=== PATIENT | male | born 1985 | race Asian ===

== ENCOUNTER 2022-12-16 15:11 | Outpatient (CLI) | payer OTHER, SELFPAY ==
[2022-12-16 16:06] LABS: Strep Group A RT-PCR NOT DETECTED (Negative)
[2022-12-16 16:17] LABS: Influenza A QL RT-PCR Negative (Negative); Influenza B QL RT-PCR Negative (Negative); SARS-CoV-2 RNA PCR Negative (Negative)
== END 2022-12-16 15:12 | disposition home or self-care (01) ==
LOC: ANHLAB 15:17
PROVIDERS: PCP Internal Medicine; Visit Provider Internal Medicine
DX: J06.9 Acute upper respiratory infection, unspecified (principal); Z20.822 Contact with and (suspected) exposure to COVID-19
CPT/HCPCS: 87502; 87635; 87651

== ENCOUNTER 2024-06-25 14:00 | Outpatient (CLI) | payer OTHER, SELFPAY ==
--- OUTSIDE RECORDS SUMMARY | 2024-06-25 14:07 | XMS_ITS | Clinical Summary ---
Author Organization [facility] Delmer marshall [facility] Address [address] [address] Care Team Providers Care Pomology Teacher Name Role Phone Apryl Beckford MD Primary Care Provider Allergies No known active allergies Medications atorvastatin (LIPITOR) 40 mg tablet Take 40 mg by mouth daily. Active pantoprazole (PROTONIX) 40 mg Tablet, Delayed Release (E.C.) Take 40 mg by mouth daily. Active famotidine (PEPCID) 40 mg tablet Take 40 mg by mouth 2 times daily. Active dicyclomine (BENTYL) 10 mg capsule Take 10 mg by mouth 1 time daily as needed for Other (See Comment) (Acid Reflux). Active Active Problems No known active problems Encounters Date Type Department Care Team Description 06/25/2024 1:30 PM CDT Office Visit [facility] Oncology and Hematology - [place] [address] [facility] [address] [place] [address] Darek Purdy MD Chronic anemia (Primary Dx); Other secondary thrombocytopenia from Last 3 Months Family History Medical History Relation Name Comments No Known Problems Child Heart Disease Father No Known Problems Mother Relation Name Status Comments Child Alive Father Alive Mother Alive Social History Tobacco Use Types Packs/Day Years Used Date Smoking Tobacco: Former Cigarettes 0.3 12 0 02/14/2001 - 02/14/2013 Smokeless Tobacco: Never Sex and Gender Information Value Date Recorded Sex Assigned at Not on file 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 Gender Identity Not on file Sexual Orientation Not on file Last Filed Vital Signs Vital Sign Reading Time Taken Comments Blood Pressure 115/76 06/25/2024 1:13 PM CDT Pulse 71 06/25/2024 1:13 PM CDT Temperature 36.6 C (97.8 F) 06/25/2024 1:13 PM CDT Respiratory Rate 16 06/25/2024 1:13 PM CDT Oxygen Saturation 98% 06/25/2024 1:13 PM CDT Inhaled Oxygen Concentration - - Weight 75.1 kg (165 lb 9.6 oz) 06/25/2024 1:13 P M CDT Height 172.7 cm (5' 8 ) 06/25/2024 1:13 PM CDT Body Mass Index 25.18 06/25/2024 1:13 PM CDT Plan of Treatment Upcoming Encounters Date Type Department Care Team (Late st Contact Info) Description 07/19/2024 4:30 PM CDT Telephone Check Up [facility] Oncology and Hematology - [place] [address] [facility] [address] [place] [address] Darek Purdy MD [address] [facility] [address] [place] [address] Health Maintenance Due Date Last Done Comments DTAP/TDAP/TD VACCINES (1 - Tdap) 08/15/2002 HEPATITIS B VACCINES (1 of 3 - 19+ 3-dose series) 08/15/2002 INFLUENZA VACCINE (#1) 2023 Preventative Visit- Commercial 02/15/2024 HPV VACCINES Aged Out No longer eligi ble based on patient's age to complete this topic Insurance [employer] OPEN CHOICE PPO Care Teams Pomology Teacher Relationship Specialty Start Date End Date Apryl Beckford MD [address] [place] [address] [place] [phone] PCP - General Internal Medicine 06/25/24
--- OUTSIDE RECORDS SUMMARY | 2024-06-25 14:07 | XMS_ITS | Encounter Summary ---
Author Organization [facility] [employer] [facility] Address [address] [place] [address] Care Team Providers Care Denture Technician Name Role Phone Apryl Beckford MD Primary Care Provider Reason for Referral * Radiology Services (Routine) - Closed Specialty Diagnoses / Procedures Referred By Contac t Referred To Contact Diagnoses Other secondary thrombocytopenia Procedures US ABDOMEN COMPLETE Darek Purdy MD [address] [place] [phone] Phone: tel: fax: [place] [phone] Referral ID Status Reason Start Date Expiration Date V isits Requested Visits Authorized [id number] Closed [facility] CTS 06/25/2024 07/26/2025 1 1 Encounter Details Date Type Department Care Team (Late st Contact Info) Description 06/25/2024 1:30 PM CDT Office Visit [facility] Oncology and Hematology [address] [place] [address] Darek Purdy MD [address] [place] [address] Chronic anemia (Primary Dx); Other secondary thrombocytopenia Social History Tobacco Use Types Packs/Day Years Used Date Smoking Tobacco: Former Cigarettes 0.3 12 0 02/14/2001 - 02/14/2013 Smokeless Tobacco: Never Sex and Gender Information Value Date Recorded Sex Assigned at Not on file 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 Gender Identity Not on file Sexual Orientation Not on file documented as of this encounter Last Filed Vital Signs Vital Sign Reading [...] Mass Index 25.18 06/25/2024 1:13 PM CDT documented in this encounter Plan of Treatment Upcoming Encounters Date Type Department Care Team (Late st Contact Info) Description 07/19/2024 4:30 PM CDT Telephone Check Up [facility] Oncology and Hematology - [place] [address] [facility] [address] [place] [address] Darek Purdy MD [address] [facility] [address] [place] [address] Scheduled Orders Name Type Priority Associated Diagnoses Orde r Schedule CBC WITH DIFFERENTIAL Lab Stat Chronic anemia Expected: 06/25/2024, Expires: 06/25/2025 COMPREHENSIVE METABOLIC PANEL Lab Stat Chronic anemia Expected: 06/25/2024, Expires: 06/25/2025 FERRITIN Lab Routine Chronic anemia Expected: 06/25/2024, Expires: 06/25/2025 IRON, TIBC, AND PERCENT SATURATION Lab Routine Chronic anemia Expected: 06/25/2024, Expires: 06/25/2025 VITAMIN B12 AND FOLATE Lab Routine Chronic anemia Expected: 06/25/2024, Expires: 06/25/2025 METHYLMALONIC ACID Lab Routine Chronic anemia Expected: 06/25/2024, Expires: 06/25/2025 TRANSFERRIN RECEPTOR TFR SOLUBLE Lab Routine Chronic anemia Expected: 06/25/2024, Expires: 06/25/2025 US ABDOMEN COMPLETE Imaging Routine Other secondary thrombocytopenia 1 Occurrences starting 06/25/2024 until 06/25/2025 MISCELLANEOUS LAB TEST Lab Routine Other secondary thrombocytopenia Expected: 06/25/2024, Expires: 06/25/2025 documented as of this encounter Visit Diagnoses Diagnosis Chronic anemia- Primary Anemia, unspecified Other secondary thrombocytopenia documented in this encounter Care Teams Denture Technician Relationship Specialty Start Date End Date Apryl Beckford MD [address] [place] [address] [place] [phone] PCP - General Internal Medicine 06/25/24 documented as of this encounter
--- OUTSIDE RECORDS SUMMARY | 2024-06-25 14:07 | XMS_ITS | CONTINUITY OF CARE DOCUMENT ---
Author Name matthew beatrizgeorge Address Unknown Organization [facility] Address [address] [facility] [address] [place] [address] Phone [phone] Care Team Providers Care Donor Technician Name Role Phone Jaycob Zavala MD Unavailable PEDRITO RANKIN MD Unavailable PEDRITO RANKIN MD Unavailable PROBLEMS Condition Status Date Provider Notes Cardiology examination active Jaycob Zavaal MD Hyperlipidemia active Jaycob Zavala MD Chest pain active Jaycob Zavala MD G E R D active Jaycob Zavala MD ENCOUNTERS Date Type Provider Location Encounter Diag nosis - In-person encounter Office Visit Jaycob Zavala MD [place] [facility] G E R D - In-person encounter Office Visit Jaycob Zavala MD [place] [facility] Cardiology examinationHyperlipidemiaChest pain VITAL SIGNS Date Observation Value Provider Body Mass Index (Ratio) 25.09 kg/m2 Abe Zavala MD blood pressure, cuff size regular Kolby Jennings blood pressure, diastolic 72 mm[Hg] Kolby Jennings blood pressure, systolic 112 mm[Hg] Gerson Jennings oxygen saturation, oximetry 98 % Radha Jennings pulse rate 65 /min Radha Jennings weight E&M 165 [lb_av] Radha Dick respiratory rate E&M 12 /min Radha Jennings height E&M 68 [in_i] Radha Dick weight E&M 163 [lb_av] Nicky roberts Body Mass Index (Ratio) 25.09 kg/m2 Abe Zavala MD blood pressure, cuff size regular Ke mario Burleson blood pressure, diastolic 70 mm[Hg] Kirk Burleson blood pressure, systolic 102 mm[Hg] Jl Burleson oxygen saturation, oximetry 98 % Krista Burleson respiratory rate E&M 12 /min Krista beckham pulse rate 67 /min Krista meraer weight E&M 165 [lb_av] Krista meraer height E&M 68 [in_i] Krista mera HISTORY OF MEDICATION USE Medication Status Instructions Dates Provider Indications Com ments sucralfate 1 gram tablet active Take one tab PO TID Radha Jennings pantoprazole 40 mg active Take one tab PO QD Radha Jennings atorvastatin 40 mg tablet active TAKE 1 TABLET BY MOUTH EVERY NIGHT Krista Burleson omeprazole 20 mg capsule,delayed release(DR/EC) completed take 1 pill a day - Radha Jennings SOCIAL HISTORY Date Observation Value Provider personal history of marijuana use no Jaycob Zavala MD drug use no Jaycob Zavala MD alcohol use, average drinks per day 3 /d Jaycob Zavala MD alcohol use yes Jaycob Zavala MD smoking status Former smoker Jaycob Zavala MD personal history of marijuana use no Jaycob Zavala MD drug use no Jaycob Zavala MD alcohol use, average drinks per day 3 /d Jaycob Zavala MD alcohol use yes Jaycob Zavala MD smoking status Former smoker Jaycob Zavala MD INSURANCE PROVIDERS Payer name Policy type / Coverage type Wojciech red democrat ID [employer] Commercial insurance company [id number] ADVANCE DIRECTIVES Name Date DISCUSSED - NO DECISION MADE TREATMENT PLAN Date Name Performer Cardiology:Follows GI Jaycob burroughs MD Cardiology: H is updated medication list for this problem includes: Atorvastatin 40 Mg Tablet (Atorvastatin) ..... Take 1 tablet by mouth every night This visit has been a part of the consistent, comprehensive, and ongoing management of the chronic medical condition(s) listed above for the patient. Jaycob Zavala MD Cardiology:Routine s tress test negative for ischemia S tates that his pain has reduced 90% after starting sucralfate Jaycob Zavala MD Cardiology: H is updated medication list for this problem includes: Atorvastatin 40 Mg Tablet (Atorvastatin) ..... Take 1 tablet by mouth every night Jaycob Zavala MD Cardiology:normal exam Jaycob boswell MD Cardiology:although atypical, he will need a routine stress test and echo due to multiple cardiac risk factors Jaycob Zavala MD Date Name Complete Echo Stress Routine HISTORY OF PROCEDURES Procedure Date Procedure Name Provider Procedure Notes S tatus Complex e/m visit add on Jaycob Zavala MD completed EKG Jaycob Zavala MD completed EKG Jaycob Zavala MD completed
--- OUTSIDE RECORDS SUMMARY | 2024-06-25 14:07 | XMS_ITS | Data Portability ---
Author Organization [place] - [facility], Main Office Address [address] [place] [address] Assessment Encounter Date Assessment Date Assessment LastModified by Organization Details LastModified Time 08/02/2022 08/02/2022 07/26/2022: TSH/FT4/CBC/C MP: WNL LDL 114 A1C 5.6 VIT D 53.5 Not available 08/02/2022 11:32:01 01/31/2023 01/31/2023 07/26/2022: TSH/FT4/CBC/C MP: WNL LDL 114 A1C 5.6 VIT D 53.5 01/25/2023: Stable 07/26/2022: TSH/FT4/CBC/C MP: WNL LDL 114 A1C 5.6 VIT D 53.5 01/25/2023: Stable Not available 01/31/2023 11:04:06 08/03/2023 08/03/2023 07/26/2022: TSH/FT4/CBC/C MP: WNL LDL 114 A1C 5.6 VIT D 53.5 01/25/2023: Stable 07/26/2022: TSH/FT4/CBC/C MP: WNL LDL 114 A1C 5.6 VIT D 53.5 01/25/2023: Stable 08/01/2023: PLT 143L A1C 5.7 Not available 08/03/2023 11:09:05 11/28/2023 11/28/2023 07/26/2022: TSH/FT4/CBC/C MP: WNL LDL 114 A1C 5.6 VIT D 53.5 01/25/2023: Stable 07/26/2022: TSH/FT4/CBC/C MP: WNL LDL 114 A1C 5.6 VIT D 53.5 01/25/2023: Stable 08/01/2023: PLT 143L A1C 5.7 11/23/2023: TSH 4.590H, FT4 1.33 PLT 142 A1C 5.5 Not available 11/28/2023 10:34:29 04/02/2024 04/02/2024 07/26/2022: TSH/FT4/CBC/C MP: WNL LDL 114 A1C 5.6 VIT D 53.5 01/25/2023: Stable 07/26/2022: TSH/FT4/CBC/C MP: WNL LDL 114 A1C 5.6 VIT D 53.5 01/25/2023: Stable 08/01/2023: PLT 143L A1C 5.7 11/23/2023: TSH 4.590H, FT4 1.33 PLT 142 A1C 5.5 03/28/2024: TSH 5.13 PLT 148 Not available 04/02/2024 10:21:13 Plan of Treatment Reminders Order Date Submit Date Provider Last Modified By Organization Details Last Modified Time Details Appointments Follow Up 15 2024 10:45A M Apryl hughes MD Not available Not available Not available Lab lipid panel, serum 2024 025 [facility]SA [facility], [address] [facility], [facility], [place], [address], 04/02/2024 10:45:07 CBC w/ auto diff 2024 025 [facility], [address] [facility], [facility], [place], [address], 04/02/2024 10:44:52 CMP, serum or plasma 2024 025 [facility]SA [facility], [address] [facility], [address], [place], [address], 04/02/2024 10:44:51 TSH + free T4, serum 2024 025 [facility]SA [facility], [address] [facility], [address], [place], [address], 04/02/2024 10:44:51 HbA1c (hemoglob in A1c), blood 2024 025 [facility]ISSA [facility], [address] [facility], [address], [place], [address], 04/02/2024 10:44:52 HbA1c (hemoglob in A1c), blood 2023 024 [email or web address] [facility], [facility], [facility], [place], [address], 05/28/2024 16:38:52 lipid panel, serum 2023 024 [email or web address] [facility], [address] [place] [address], [facility], [place], [address], 05/28/2024 16:38:51 CBC w/ auto diff 2023 024 [email or web address] [facility], [address] [place] [address], [facility], [place], [address], 05/28/2024 16:38:52 CMP, serum or plasma 2023 024 [email or web address] [facility], [address] [place] [address], [facility], [place], [address], 05/28/2024 16:38:52 TSH + free T4, serum 2023 024 [email or web address] [facility], [address] [place] [address], [facility], [place], [address], 05/28/2024 16:38:52 HbA1c (hemoglob in A1c), blood 2023 024 [facility]SA [facility], [facility], [facility], [place], [address], 11/24/2023 07:37:06 CBC w/ auto diff 2023 024 [facility], [facility], [facility], [place], [address], 08/04/2023 07:38:54 lipid panel, serum 2023 024 [facility], [address] [facility], [facility], [place], [address], 11/24/2023 07:37:06 CBC w/ auto diff 2023 024 [facility], [address] [place] [address], [facility], [place], [address], 11/24/2023 07:37:06 CMP, serum or plasma 2023 024 [facility]ELISSA [facility], [address] [place] [address], [facility], [place], [address], 11/24/2023 07:37:06 TSH + free T4, serum 2023 024 [email or web address] [facility], [address] [place] [address], [place], [address], 01/30/2024 09:13:29 HbA1c (hemoglob in A1c), blood 2022 023 [email or web address] [facility], [address] [place] [address], [facility], [place], [address], 01/30/2024 09:13:28 lipid panel, serum 2022 023 [facility], [address] [place] [address] 2, [place], [address], 01/30/2024 09:13:28 CBC w/ auto diff 2022 023 [email or web address] [facility], [address] [place] [address], [facility], [place], [address], 01/30/2024 09:13:28 CMP, serum or plasma 2022 023 [email or web address] [facility], [address] [place] [address], [facility], [place], [address], 01/30/2024 09:13:28 TSH + free T4, serum 2022 023 [email or web address] [facility], [address] [place] [address], [place], [address], 01/30/2024 09:13:28 HbA1c (hemoglob in A1c), blood 2022 023 [email or web address] [facility], [address] [place] [address], [place], [address], 03/11/2023 10:02:42 lipid panel, serum 2022 023 [email or web address] [facility], [address] [place] [address], [place], [address], 03/11/2023 10:02:42 CBC w/ auto diff 2022 023 [email or web address] [facility], [address] [place] [address], [place], [address], 03/11/2023 10:02:42 CMP, serum or plasma 2022 023 [email or web address] [facility], [address] [place] [address], [place], [address], 03/11/2023 10:02:42 TSH + free T4, serum 2022 023 [email or web address] [facility], [address] [place] [address], [place], [address], 03/11/2023 10:02:42 Referral gastroent erologist referral - Please call patient to schedule an appointme nt. Thank you. 2024 025 HAILEY Escobar MD, [address], [address], [place], [address], 04/02/2024 14:05:24 physical therapist referral - Please call patient to schedule an appointme nt. Thank you. 2024 025 [facility] [place] [facility], [address], [place], [address], 05/11/2024 17:31:25 hematolog ist referral - Please call patient to schedule an appointme nt. Thank you. 2024 025 [email or web address] Darek Purdy MD, [address], [place], [address], 04/02/2024 13:30:48 gastroent erologist referral 2023 024 MELISSA Escobar MD, [address], [facility] [address], [address], 12/05/2023 10:19:25 hematolog ist referral 2023 024 [email or web address] Darek Purdy MD, [address], [place], [address], 06/25/2024 08:55:12 cardiolog ist referral 2023 024 [place], [address] , [place] [address], [address], 08/04/2023 15:55:15 Procedures None recorded. Surgeries None recorded. Imaging US, thyroid - Please call patient to schedule. 2024 025 [facility] ([facility]), [address] [place], [address], 05/03/2024 15:44:09 CT, chest, w/o contrast - Auth was denied stating pt needs to have a chest xray first. Sent pt case to Dr. Nayla hughes 2023 024 [email or web address] Not available 08/24/2023 14:00:06 Medication Orders Lipitor 40 mg tablet 2022 023 [facility], [address] [place], [address], 08/02/2022 11:49:37 Patient TargetsNo targets recorded. Patient InstructionsNo instructions recorded. 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 Thank you. Referring Physician: Apryl [facility], Encounter Date: 04/02/2024 Line Leader Referral for Dysphagia Please call patient to schedule an appointment. Thank you. Referring Physician: Apryl [facility], Encounter Date: 04/02/2024 Physical Therapist Referral for Low back pain Please call patient to schedule an appointment. Thank you. Referring Physician: Apryl [facility], Encounter Date: 04/02/2024 Results Created Date Observation Date Name Description Value Unit Range Abnormal Flag Note LastModifiedBy Organization Detail LastModifiedTime 10/06/19 23 tibia /fibu la 2 vws, left [facility] [address] [address] [phone] Patien t Name: DIPTI RUBIO RA Access ion #: [id number] Sex: M : 1985 8 4 Dictat ed By: Zee dixon Attend ing Physic issa: ALFIE TAMAYO Orderi Physic issa: ALFIE TAMAYO Exam Date: 2022 13:09 PM Exam Name: XR TIBIA/ FIBULA LT 2V Admitt ing Diagno sis(es ): CLINIC AL INFORM ATION: Left lower leg injury . TECHNI QUE: AP and latera l radiog raphs of the left lower leg were obtain ed. COMPAR VICTORINA: No prior studie s. FINDIN GS: No acute fractu re or disloc ation. No signif icant arthro junito. No focal soft tissue swelli ng visual ized on radiog raphs. IMPRES ERLIN: No eviden ce of acute bony abnorm ality. Electr onical ly Signed by: Zee dixon at 2022 13:33: 15 PM Page 1 [email or web address] [facility] (Imaging) [address] [place], [address], 10/05/2022 14:41:38 10/06/19 23 10/05/2022 XR, lower extre mity No observ ation record ed. [email or web address] [facility] [address] [place], [address], 02/03/2023 09:04:44 08/10/19 24 XR, chest , 2 view [facility] [address] [place] [address] [phone] Patien t Name: DIPTI RUBIO RA Access ion #: [id number] Sex: M : 1985 8 3 Dictat ed By: Cora Hawk Attend ing Physic issa: ALFIE TAMAYO Orderi ng Physic issa: ALFIE TAMAYO Exam Date: 2023 10:40 AM Exam Name: XR CHEST 2V Admitt ing Diagno sis(es ): EXAM: XR CHEST 2V CLINIC AL HISTOR Y: chest pain COMPAR VICTORINA: None TECHNI QUE: Fronta l and latera l view of the chest was obtain ed FINDIN GS: Lines and Tubes: None Lungs: No focal consol idatio n. Pleura : No effusi on. No pneumo thorax . Cardio medias tinal contou rs: Unrema rkable Bones: No acute osseou s abnorm ality. IMPRES ERLIN: No acute cardio pulmon demarcus diseas e. Electr onical ly Signed by: Cora Hawk at 2023 11:09: 16 AM Page 1 [facility] (Imaging) [address] [place], [address], 08/10/2023 12:10:57 08/10/19 24 08/10/2023 imagi ng/di agnos tic resul t No observ ation record ed. [facility] [address] [place], [address], 08/10/2023 12:20:40 09/16/19 24 09/16/2023 imagi ng/di agnos tic resul t No observ ation record ed. [facility] [address] [facility], [place], [address], 09/16/2023 19:34:51 09/22/19 24 09/22/2023 imagi ng/di agnos tic resul t No observ ation record ed. [facility] [address] [facility] [address], [place], [address], 09/22/2023 17:41:30 05/04/19 25 05/03/2024 US, head + neck, soft tissu e [facility] [address] [place] [address] [phone] Patien t Name: DIPTI RUBIO Access ion #: [id number] Sex: M : 1985 8 5 Dictat ed By: Cora Hawk Attend ing Physic issa: ALFIE TAMAYO Physic issa: ALFIE TAMAYO Exam Date: 2024 13:18 PM Exam Name: US NECK HEAD SOFT TISSUE Admitt ing Diagno sis(es ): ULTRAS OUND SOFT TISSUE HEAD AND NECK CLINIC AL INDICA TION: Hypoth yroidi sm TECHNI QUE: Multip le real time sonogr aphic images of the thyroi d were obtain ed. COMPAR VICTORINA: Prior exam dated None FINDIN GS: The right thyroi d gland measur es 4.6 x 1.6 x 1.2 cm. The left thyroi d gland measur es approx imatel y 4.1 x 1.1 x 1.4 cm. The isthmu s measur es 0.4 cm. IMPRES ERLIN: 1. Normal Thyroi d. [employer] TI-RAD S Catego maddie and Recomm endati ons (2017) : TR1: 0 points , Benign , No FNA TR2: 2 points , Not suspic ious, No FNA TR3: 3 points , Mildly suspic ious, FNA if > or = 2.5 cm, Follow if > or = 1.5 cm TR4: 4-6 points , Modera tely Suspic ious, FNA if > or = 1.5 cm, Follow if > or = 1.0 cm Page 1 [facility] [address] [place] [address] Patien t Name: DIPTI RUBIO Access ion #: [id number] Sex: M : 1985 8 5 Dictat ed By: Cora Hawk Attend ing Physic issa: ASTRID HAMILTON Physic issa: ALFIE TAMAYO Exam Date: 2024 13:18 PM Exam Name: US NECK HEAD SOFT TISSUE Admitt ing Diagno sis(es ): TR5: 7+ points , Highly Suspic ious, FNA if > or = 1.0 cm, Follow if > or = 0.5 cm Follow -up ultras ound guidel cori: TR5: yearly for 5 years, if no growth or change in TI-RAD S level TR4: at 1, 2, 3 and 5 years, if no growth or change in TI-RAD S level TR3: at 1, 3 and 5 years, if no growth or change in TI-RAD S level If increa sed but below thresh old for FNA, repeat in one year. Source : ACR Thyroi d Shayla g, Report ing and Data System (TI-RA DS): White Paper of the ACR TI-RAD S Commit alex. Vladimir et al., J Am Mike Radiol 2017;1 4:587- 595. Electr onical ly Signed by: Cora Hawk at 2024 14:39: 35 PM Page 2 [facility] ([facility]) [address] [facility], [place], [address], 05/03/2024 15:41:47 05/04/19 25 05/03/2024 US, thyro id No observ ation record ed. [facility] [address] [facility], [place], [address], 05/03/2024 15:44:09 Result Notes None recorded. Problems Name Problem SNOMED Code Status Onset Date Resolution Date Notes Provider Name and Address Organization Details Recorded Time Upper respiratory infection 64155794 Active 2022 Miya lozano, [facility] 3 17:35:31 COVID-19 222047731 Active 2022 Miya lozano, [facility] 3 12:46:58 Allergic rhinitis 21343369 Active 2022 Apryl hughes MD [address], [address], [place], [address], [facility] 3 11:26:26 Thoracic back pain 253371284 Active 2022 Apryl hughes MD [address], [place], [address], [facility] 3 11:26:31 Hyperlipidemia 73073795 Active 2022 Apryl hughes MD [address], [place], [address], [facility] 3 11:26:39 Hyperglycemia 98504764 Active 2022 Apryl hughes MD [address], [place], [address], [facility] 3 11:26:44 Injury of lower leg 609376074 Active 2022 Miya Bell null, [facility] 3 12:54:32 Gastroesophage al reflux disease without esophagitis 864765430 Active 2023 Ivet Mak MA null, [facility] 4 15:06:54 Dysphagia 52131656 Active 2023 Ivet Mak MA null, [facility] 4 15:32:57 Atypical chest pain 786284630 Active 2023 Apryl hughes MD [address], [address], [place], [address], [facility] 4 11:25:48 Thrombocytopen ic disorder 462594202 Active 2023 Apryl hughes MD [address], [address], [place], [address], [facility] 4 11:28:16 Chest pain 33108476 Active 2023 Ivet Mak MA null, [facility] 4 14:10:29 Painless rectal bleeding 215374214 Active 2023 Apryl hughes MD [address], [address], [place], [address], [facility] 4 10:37:52 Hypothyroidism 93652127 Active 2024 Apryl hughes MD [address], [address], [place], [address], [facility] 5 18:04:36 Low back pain 277609005 Active 2024 Apryl hughes MD [address], [address], [place], [address], [facility] 10:42:08 Problem Notes None recorded. Procedures Surgical History Date Name Laterality Status Provider Name and Address Organization Details Recorded Time Stanley Teeth completed Not Available MelissaHealdanilo h 04/15/2022 01:25:12 Imaging Results Imaging Date Name Status LastModified by Organiz ation Details LastModified Time 10/05/2022 tibia/fibula 2 vws, left completed [facility] [place] [address] (Imaging) [address] [place], [address], 10/05/2022 14:41:38 10/05/2022 XR, lower extremity completed [address] [place], [address], 02/03/2023 09:04:44 08/10/2023 XR, chest, 2 view active [facility] (Imaging) [address] [place], [address], 08/10/2023 12:10:57 08/10/2023 imaging/diagno stic result active [facility] [address] [place], [address], 08/10/2023 12:20:40 09/16/2023 imaging/diagno stic result active [facility] [address] , [place], [address], 09/16/2023 19:34:51 09/22/2023 imaging/diagno stic result active [facility] [address] [facility] [address] [facility] [place], [place], [address], 09/22/2023 17:41:30 05/03/2024 US, head + neck, soft tissue active [facility] (Imaging) [address] [place], [address], 05/03/2024 15:41:47 05/03/2024 US, thyroid active [place] [address] [facility] [place], [address], 05/03/2024 15:44:09 Procedure Notes None recorded. Medical Equipment None Reported. Allergies No known drug allergies Medications Name Sig Start Date Stop Date Status Note LastModified by Organization Details LastModified Time atorvastati n 40 mg tablet Take 1 tablet by mouth once daily 2023 active Not Available Not Available Not Avai lable meloxicam 15 mg tablet Take 1 tablet every day by oral route as needed for 30 days. active Not Available Not Available No t Available prednisone 20 mg tablet TAKE 3 TABLETS BY MOUTH ONCE DAILY FOR 5 DAYS 11/23 completed Not Available Not Available Not Available Zithromax Z-Javon 250 mg tablet TAKE 2 TABLETS (500 MG) BY ORAL ROUTE ONCE DAILY FOR 1 DAY THEN 1 TABLET (250 MG) BY ORAL ROUTE ONCE DAILY FOR 4 DAYS 01/31 completed Not Available Not Available Not Available pantoprazol e 20 mg tablet,francisco yed release Take 1 tablet every day by oral route. active Not Available Not Available No t Available benzonatate 100 mg capsule TAKE 1 CAPSULE BY MOUTH EVERY 8 HOURS NEEDED 11/23 completed Not Available Not Available Not Available omeprazole 20 mg capsule,del ayed release TAKE 1 CAPSULE BY MOUTH ONCE DAILY NEEDED 11/27 completed Not Available Not Available Not Available amoxicillin 875 mg-potassiu m clavulanate 125 mg tablet TAKE 1 TABLET BY MOUTH EVERY 12 HOURS 08/02 completed Not Available Not Available Not Available Vitamin D 2021 active Not Available Not Available Not Avai lable Nasacort Allergy 55 mcg nasal spray aerosol Desmet 2 sprays every day by intranasa l route. 2021 active Not Available Not Available Not Avai lable Paxlovid 300 mg (150 mg x 2)-100 mg tablets in a dose pack TAKE 3 TABLETS BY MOUTH TWICE A DAY FOR 5 DAYS DIRECTED 08/02 completed Not Available Not Available Not Available Vitals Date Recorded Body height Body mass index (BMI) Body weight Body temperature Heart rate Systolic blood pressure Diastolic blood pressure Provider Name and Address Organization Details Last Updated DateTime 3 172.72 cm 26.5 kg/m2 52468.0 7 g 97.4 [degF] 72 /min 106 mm[Hg] 62 mm[Hg] [employer] [place] [employer] [facility] [employer] [facility] 3 11:23:13 Date Recorded Body height Body mass index (BMI) Body weight Body temperature Heart rate Systolic blood pressure Diastolic blood pressure Provider Name and Address Organization Details Last Updated DateTime 3 172.72 cm 25.5 kg/m2 63005.5 2 g 97.5 [degF] 72 /min 100 mm[Hg] 62 mm[Hg] [employer] [facility] [employer] [facility] 3 11:09:24 Date Recorded Body height Body mass index (BMI) Body weight Body temperature Heart rate Systolic blood pressure Diastolic blood pressure Provider Name and Address Organization Details Last Updated DateTime 4 172.72 cm 24.6 kg/m2 90543.9 6 g 97.7 [degF] 72 /min 114 mm[Hg] 70 mm[Hg] [employer] [facility] [employer] [facility] 4 11:03:20 Date Recorded Body height Body mass index (BMI) Body weight Body temperature Heart rate Respiratory rate Oxygen saturation Oxygen saturation in Arterial blood by Pulse oximetry Pain severity - 0-10 verbal numeric rating [Score] - Reported Systolic blood pressure Diastolic blood pressure Provider Name and Address Organization Details Last Updated DateTime 4 172.72 cm 24.9 kg/m2 33996.1 5 g 97.5 [degF] 64 /min 16 /min 99 % 99 % 0 108 mm[Hg] 62 mm[Hg] Alistair Peterson LPN [facility] [employer] [facility] 4 10:29:26 Date Recorded Body height Body mass index (BMI) Body weight Body temperature Heart rate Systolic blood pressure Diastolic blood pressure Provider Name and Address Organization Details Last Updated DateTime 5 172.72 cm 25.4 kg/m2 76629.9 3 g 97.6 [degF] 72 /min 114 mm[Hg] 72 mm[Hg] [employer] Amanda [facility] [employer] [facility] 5 10:25:45 Social History Question Answer Notes LastModified by Organization Details LastModified Time Tobacco Smoking Status Former Smoker was 1/ ppd --quit 2011 Not Available [employer] 04/15/2022 01:24:55 Do You Have An Advance Directive? No [email or web address] [id number] Information not available 04/15/2022 What Is Your Level Of Caffeine Consumption? Moderate MIGRATION.030 [id number] Information not available 04/15/2022 In The 14 Days Before Symptom Onset, Have You Had Close Contact With A Laboratory-confi rmed COVID-19 While That Case Was Ill? No MIGRATION.030 [id number] Information not available 04/15/2022 In The 14 Days Before Symptom Onset, Have You Had Close Contact With A Person Who Is Under Investigation For COVID-19 While That Person Was Ill? No MIGRATION.030 [id number] Information not available 04/15/2022 What Type Of Diet Are You Following? REGULAR MIGRATION.030 [id number] Information not available 04/15/2022 What Is The Highest Grade Or Level Of School You Have Completed Or The Highest Degree You Have Received? [id number] MIGRATION.030 [id number] Information not available 04/15/2022 Have There Been Any Changes To Your Family Or Social Situation? No MIGRATION.030 [id number] Information not available 04/15/2022 What Is The Fluoride Status Of Your Home? Unknown MIGRATION.030 [id number] Information not available 04/15/2022 When Did You Quit Smoking? 11-15yearssincelast cigarette Information not available 01/31/2023 Are There Any Guns Present In Your Home? No MIGRATION.030 [id number] Information not available 04/15/2022 Do You Use Insect Repellent Routinely? Yes MIGRATION.030 [id number] Information not available 04/15/2022 Where Do You Live? [place] MIGRATION.030 [id number] Information not available 04/15/2022 Do You Have A Medical Power Of Mesh Man? No MIGRATION.030 [id number] Information not available 04/15/2022 What Was The Date Of Your Most Recent Tobacco Screening? 04/02/2024 Information not available 04/02/2024 Do You Have Any Pets? No MIGRATION.030 [id number] Information not available 04/15/2022 What Is Your Relationship Status? MIGRATION.030 [id number] Information not available 04/15/2022 Do You Have Smoke And Carbon Monoxide Detectors In Your Home? Yes MIGRATION.0301 [id number] Information not available 04/15/2022 Are You Passively Exposed To Smoke? No MIGRATION.0301 [id number] Information not available 04/15/2022 Are There Any Smokers In Your House? No MIGRATION.0301 [id number] Information not available 04/15/2022 Do You Use Sunscreen Routinely? No MIGRATION.0301 [id number] Information not available 04/15/2022 Have You Recently Traveled Abroad? No MIGRATION.0301 [id number] Information not available 04/15/2022 Do You Have Any Dietary Restrictions? No [id number] Information not available 04/15/2022 Sex: Male Functional Status Question Answer Note LastModified by [employer] Details LastModified Time Do you use any illicit or recreational drugs? No [id number] Information not available 04/15/2022 Do you or have you ever used any other forms of tobacco or nicotine? No [id number] Information not available 04/15/2022 What is your level of alcohol consumption? 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 Occasional [id number] Information not available 04/15/2022 Mental Status Question Answer Note LastModified by [email or web address] Details LastModified Time Do you feel stressed (tense, restless, nervous, or anxious, or unable to sleep at night)? [id number] Information not available 04/15/2022 Family History Relationship Description Onset Age of this Age Resolved Age Notes LastModified by Organization Details LastModified Time Father Heart disease [id number] Not available 04/15/2022 01:25:16 Father Cardiac pacemaker in situ [id number] Not available 04/15/2022 01:25:16 Father Heart valve replacement [id number] Not available 04/15/2022 01:25:16 Mother Disorder of thyroid gland [id number] Not available 04/15/2022 01:25:16 Paternal Uncle Malignant tumor of stomach [email or web address] Not available 2022 11:07:45 Medical History Condition Response NERVE DISEASE N BLINDNESS N RHEUMATIC FEVER N KIDNEY STONES N BLADDER PROBLEMS N MRSA N OTHER # 1 N POLIO N LUNG DISEASE/DISORDER N HISTORY OF DRUG ABUSE N COPD N RADIATION / CHEMOTHERAPY N Other # 2 N BLOOD DISEASES N EAR OR HEARING PROBLEMS N MUMPS N SHINGLES N BOWEL PROBLEMS N DEPRESSION (INCLUDING POST ) N STROKE/TIA N ULCERS N BENIGN PROSTATIC HYPERPLASIA N MEASLES N HYPOTENSION N MYOCARDIAL INFARCTION N OBESITY N GERD/NAUSEA N ANEURYSM N URINARY/BLADDER/KIDNEY PROBLEMS N CORONARY ARTERY DISEASE (CAD) N ADDICTION CONCERNS N ENDOMETRIOSIS N Impotence N USE OF BLOOD THINNERS N SKIN PROBLEMS N GASTROINTESTINAL DISORDER N PERIPHERAL VASCULAR DISEASE N MUSCLE,JOINT OR BONE PROBLEMS N GASTROINTESTINAL BLEEDING N BLOOD CLOTS N ASTHMA N CATARACTS N ERECTILE DYSFUNCTION N VARICOSITIES N GI PROBLEMS N Low Testosterone N INFERTILITY N AIDS/HIV N CHEMOTHERAPY / RADIATION N LIVER DISEASE N MALE HYPOGONADISM N HYPERTENSION N Deficiency N TOURETTE'S N ANXIETY DISORDER N BLOOD TRANSFUSION N ANEMIA/BLOOD DISORDER N CHRONIC EAR INFECTIONS N BRONCHITIS N TUBERCULOSIS N GLAUCOMA N FOOT PROBLEM N DIVERTICULITIS N CHICKENPOX N SLEEP APNEA N INFECTIOUS DISEASE N HEART ARRHYTHMIA N PROSTATE N INSOMNIA N HIGH CHOLESTEROL / HYPERLIPIDEMIA N HYPERTHYROIDISM N EYE PROBLEMS N EDEMA N CHRONIC PAIN SYNDROME N HYPOTHYROIDISM N CAROTID BLOCKAGE N CONSTIPATION N BACK / NECK PROBLEMS N ATHEROSCLEROSIS N BREAST PROBLEMS N DIALYSIS N ECZEMA N OSTEOPOROSIS N ARTHRITIS N APPENDICITIS N DIABETES, TYPE N BAD TEETH N ENT N HEARTBURN / REFLUX N AUTISM SPECTRUM DISORDER (ASD) N HEPATITIS / LIVER DISEASE N GOUT N SLEEP DISORDER N ALZHEIMER'S DISEASE N Brain Problems N HERPES N DEMENTIA N HEADACHES/MIGRAINES N SEIZURES/EPILEPSY N VASCULAR DISEASE N PACEMAKER N Blood Disorder N DIZZINESS N HEART DISEASE/HEART PROBLEMS N KIDNEY DISEASE N MULTIPLE SCLEROSIS N CARDIAC ARRHYTHMIA N CANCER: SPECIFY N ATRIAL FIBRILLATION N Gall Stones N PULMONARY EMBOLISM N AUTOIMMUNE DISEASE N Immunizations Vaccine Type Date Status Note Provider Nam e and Address Organization Details Recorded Time Influenza, split virus, quadrivalent, PF 11/23/2021 completed Not Available [facility] 3 01:30:51 Past Encounters Encounter ID Performer Location Encounter Start Date Encounter Closed Date Diagnosis/Indication Diagnosis SNOMED-CT Code Diagnosis ICD10 Code Diagnosis Note [id number] Apryl christina MD [facility] [place] [address] [facility] [place] [address] 11/23/2021 00:00:00 11/23/2021 16:57:26 [id number] Apryl christina MD [facility] Internal [facility] [address] [place] [address] 04/05/2022 00:00:00 04/05/2022 10:01:11 [id number] Apryl christina MD [facility] Internal [address] , [place] [address] 08/02/2022 11:15:51 08/02/2022 11:52:48 Screening - NAD 378681399 Z13.9 Get yearly flu shotShould do Tdap if not doneGet COVID 19 vaccine and its boosters RTC in 3 monthsDo labsER if worse, he did verbalize his understand ing of the above Allergic rhinitis 760603 04 J30.9 On nasocortDo es well Thoracic back pain 04127 8004 M54.6 Xray C-spine: 11/23/2021 : DDD, see casePT referral given Hyperlipidemia 25813978 E78.5 Agreeable to do lipitor, all side effects explainedG et labs Hyperglycemia 16492859 R 73.9 Get A1C [id number] Apryl christina MD [facility] Internal [address] , [place] [address] 01/31/2023 10:59:50 01/31/2023 11:55:06 Screening - NAD 290361725 Z13.9 Get yearly flu shotShould do Tdap if not doneGet COVID 19 vaccine and its boosters RTC in 3 monthsDo labsER if worse, he did verbalize his understand ing of the above Allergic rhinitis 010270 04 J30.9 On nasocortDo es well Thoracic back pain 35870 8004 M54.6 Xray C-spine: 11/23/2021 : DDD, see casePT referral given Hyperlipidemia 62935490 E78.5 Agreeable to do lipitor, all side effects explainedG et labs Hyperglycemia 22496801 R 73.9 Get A1C [id number] Apryl christina MD [facility] Internal [facility] [place] [address] [place] [address] 08/03/2023 10:57:36 08/03/2023 11:30:21 Screening - NAD 577500892 Z13.9 Get yearly flu shotShould do Tdap if not doneGet COVID 19 vaccine and its boosters RTC in 3 monthsDo labsER if worse, he did verbalize his understand ing of the above Allergic rhinitis 642666 04 J30.9 On nasocortDo es well Thoracic back pain 86323 8004 M54.6 Xray C-spine: 11/23/2021 : DDD, see casePT referral given Hyperlipidemia 04536186 E78.5 On atorvastat in 40mg dailyGet labs Hyperglycemia 51764609 R 73.9 Get N3FMkmxg to not take any meds, diet and exercise, states that was eating a lot of ice cream Dysphagia 57934130 R13.[address] Escobar 05/17/2023 On omeprazole S/p EGD 05/31/2023 Keep apt with GI Atypical chest pain 1025 02413 R07.89 Feels that he has a feeling of something stuck in the mid chest area, no obvious chest pain, no palpitatio ns, no presycnope or syncope, describes as a discomfort not even painExtens jess family history of CADWill get CT chest and also get cardiology referralWi ll see Dr Zavala 08/04/2023 at 2 pm Thrombocyt openic disorder 930536975 D69.6 Repeat the CBCMay need to see hematology [id number] Apryl christina MD [facility] [place] Internal Med [facility] [place] [address] [facility] [place] [address] 11/28/2023 10:19:13 11/28/2023 11:04:57 Screening - NAD 664223718 Z13.9 C-scope : Dr Escobar, internal hhoids, next in 10 years Get yearly flu shot, declined 11/28/2023 Should do Tdap if not doneGet COVID 19 vaccine and its boosters RTC in 3 monthsDo labsER if worse, he did verbalize his understand ing of the above Allergic rhinitis 395145 04 J30.9 On nasocortCa n do OTC zyrtecDoes well Thoracic back pain 65053 8004 M54.6 Xray C-spine: 11/23/2021 : DDD, see caseDoes well now 11/28/2023 Hyperlipidemia 20085409 E78.5 On atorvastat in 40mg dailyGet labs Hyperglycemia 73611712 R 73.9 Get G4LBkyek to not take any meds, diet and exercise, states that was eating a lot of ice cream Dysphagia 56196190 R13.[address] Escobar 05/17/2023 On omeprazole S/p EGD 05/31/2023 , distal esophageal strictureK eep apt with GI Atypical chest pain 1025 82328 R07.89 Feels that he has a feeling of something stuck in the mid chest area, no obvious chest pain, no palpitatio ns, no presycnope or syncope, describes as a discomfort not even painExtens jess family history of CAD Dr Zavala 08/04/2023 at [address] Ronal 09/22/2023 , f/u PRN XR chest: 08/10/2023 : NegECHO 09/22/2023 : SLHVStress test 09/16/2023 : Neg Thrombocyt openic disorder 687649813 D69.6 See hematology Painless r ectal bleeding 397790379 K62.5 C-scope : Dr Escobar, internal hhoids, next in 10 years [id number] Apryl christina MD [facility] [address] [facility] [place] [address] 04/02/2024 10:18:11 04/02/2024 10:47:00 Screening - NAD 682689463 Z13.9 C-scope : Dr Escobar, internal hhoids, next in 10 years Get yearly flu shot, declined 11/28/2023 Should do Tdap if not doneGet COVID 19 vaccine and its boosters RTC in 3 monthsDo labsER if worse, he did verbalize his understand ing of the above Allergic rhinitis 705488 04 J30.9 On nasocortCa n do OTC zyrtecDoes well Thoracic back pain 09674 8004 M54.6 Xray C-spine: 11/23/2021 : DDD, see caseDoes well now 11/28/2023 Hyperlipidemia 26202528 E78.5 On atorvastat in 40mg dailyGet labs Hyperglycemia 47947261 R 73.9 Get V0OJsesv to not take any meds, diet and exercise, states that was eating a lot of ice cream Dysphagia 80199473 R13.[address] Escobar 05/17/2023 On omeprazole S/p EGD 05/31/2023 , distal esophageal strictureK eep apt with GI Atypical chest pain 1025 66484 R07.89 Feels that he has a feeling of something stuck in the mid chest area, no obvious chest pain, no palpitatio ns, no presycnope or syncope, describes as a discomfort not even painExtens jess family history of CAD Dr Zavala 08/04/2023 at [address] Ronal 09/22/2023 , f/u PRN XR chest: 08/10/2023 : NegECHO 09/22/2023 : SLHVStress test 09/16/2023 : Neg Thrombocyt openic disorder 963014309 D69.6 See hematology Painless r ectal bleeding 252724584 K62.5 C-scope 024: Dr Escobar, internal hhoids, next in 10 years Hypothyroidism 54876832 E03.9 Get labsGet US thyroid done Low back pain 495262358 M54.50 No acute trauma, no fall, no N/T in the LE, no loss or bowel or bladder controlSta milo that the right side of the lower back feels 'tight'José l get PT to eval and treat and it has helped him in the past, if not better will need Xrays or see ortho Health Concerns Section Related Observation LastModified by Organization Detai ls LastModified Time None Recorded Concern Status LastModified by Organization Details LastModified Time None Recorded Advance Directives Directive N: Payers Encounter Date Sequence Insurance Name Policy Number Policy Carson Covered Member ID Carson Member ID Guarantor Name 08/02/2022 1 [employer] [id number] Yee Trinhosh [id number] Sumantra Ray 01/31/2023 1 [employer] [id number] Yee Trinhosh [id number] Sumantra Ray 08/03/2023 1 [employer] [id number] Nirua Liseth [id number] Sumantra Ray 11/28/2023 1 [employer] [id number] Nirua Liseth [id number] Sumantra Ray 04/02/2024 1 [employer] [id number] Nirua Liseth [id number] Sumantra Ray Notes Date Note Type Note Provider Name and Address Organization Details Recorded Time 08/02/2022 text/html OV 11/23/2021:He re to establish carePast Hx:DMIIEx smokerReviewed social family and surgical historyHe is doing well, has noted some upper and mid back pain, none todayno recent labs OV 04/05/2022:Here for his f/u apt, he is doing well, he did do the labs OV 08/02/2022: Here for his f/u apt, is doing well, did do the labs Apryl Beckford MD [address], [place], [address], [facility] [employer] [facility] 08/02/2022 11:51:56 01/31/2023 text/html OV 11/23/2021:He re to establish carePast Hx:DMIIEx smokerReviewed social family and surgical historyHe is doing well, has noted some upper and mid back pain, none todayno recent labsOV 04/05/2022:Here for his f/u apt, he is doing well, he did do the labs OV 08/02/2022: Here for his f/u apt, is doing well, did do the labs OV 01/31/2023: Here for his f/u apt, he feels well, recently moved back from [place] Apryl Beckford MD [address], [place], [address], [facility] [employer] [facility] 01/31/2023 15:29:14 08/03/2023 text/html OV 11/23/2021:He re to establish carePast Hx:DMIIEx smokerReviewed social family and surgical historyHe is doing well, has noted some upper and mid back pain, none todayno recent labsOV 04/05/2022:Here for his f/u apt, he is doing well, he did do the labs OV 08/02/2022: Here for his f/u apt, is doing well, did do the labs OV 01/31/2023: Here for his f/u apt, he feels well, recently moved back from [place] OV 08/03/2023: Here for his routine apt, he is doing well today, still has some chest discomfort, feels that he has something 'stuck' in the chest, not associated with foodHe did do the EGD with Dr Luz Beckford MD [address], [place], [address], [facility] [employer] [facility] 08/03/2023 14:13:56 11/28/2023 text/html OV 11/23/2021:He re to establish careWist Hx:DMIIEx smokerReholzer hospitald social family and surgical historyHe is doing well, has noted some upper and mid back pain, none todayno recent labsOV 04/05/2022:Here for his f/u apt, he is doing well, he did do the labs OV 08/02/2022: Here for his f/u apt, is doing well, did do the labs OV 01/31/2023: Here for his f/u apt, he feels well, recently moved back from [place] OV 08/03/2023: Here for his routine apt, he is doing well today, still has some chest discomfort, feels that he has something 'stuck' in the chest, not associated with foodHe did do the EGD with Dr Escobar OV 11/28/2023: Here for his f/u apt, he is doing well today, he did do the labs on 11/23/2023 Apryl Beckford MD [address], [place], [address], [facility] [employer] [facility] [employer] 11/28/2023 11:12:43 04/02/2024 text/html OV 11/23/2021:He re to establish carePast Hx:DMIIEx smokerReviewed social family and surgical historyHe is doing well, has noted some upper and mid back pain, none todayno recent labsOV 04/05/2022:Here for his f/u apt, he is doing well, he did do the labs OV 08/02/2022: Here for his f/u apt, is doing well, did do the labs OV 01/31/2023: Here for his f/u apt, he feels well, recently moved back from [place] OV 08/03/2023: Here for his routine apt, he is doing well today, still has some chest discomfort, feels that he has something 'stuck' in the chest, not associated with foodHe did do the EGD with Dr Escobar OV 11/28/2023: Here for his f/u apt, he is doing well today, he did do the labs on 11/23/2023 OV 04/02/2024: Here for his f/u apt, he feels well today, he did do the labs, see NEIDA Beckford MD [address], [place], [address], [employer] 04/02/2024 10:45:22
[2024-06-25 14:19] LABS: Basophils Absolute Auto 0.1 K/mm3 (0.0-0.1); Basophils Percent Auto 1.4 % (0.2-1.2); Eosinophils Absolute Auto 0.2 K/mm3 (0-0.3); Eosinophils Percent Auto 4.4 % (0-4.4); Hematocrit 44.8 % (42.0-52.0); Hemoglobin 14.9 g/dL (14.0-18.0); Immature Granulocyte Absolute 0.02 K/mm3 (0.00-0.031); Immature Granulocyte Percent A 0.4 % (0-0.5); Lymphocytes Absolute Auto 1.76 K/mm3 (0.9-3.2); Lymphocytes Percent Auto 35.4 % (18.3-44.2); Mean Corpuscular HGB Conc 33.3 g/dl (32-36); Mean Corpuscular Hemoglobin 28.5 pg (26-34); Mean Corpuscular Volume 85.8 fl (80-100); Monocytes Absolute Auto 0.5 K/mm3 (0.1-0.6); Monocytes Percent Auto 9.1 % (2.6-8.5); Neutrophils Absolute Auto 2.5 K/mm3 (1.3-6.7); Neutrophils Percent Auto 49.3 % (45.5-73.1); Platelet Count Result 172 k/mm3 (150-375); Red Blood Count 5.22 M/mm3 (4.6-6.20); Red Cell Distribution Width 12.9 % (11.5-14.5)
[2024-06-25 20:34] LABS: Alanine Aminotransferase 29 U/L (6-50); Albumin Level 4.5 g/dL (3.5-5.1); Alkaline Phosphatase 73 U/L (38-126); Anion Gap 8 mmol/L (4-12); Aspartate Amino Transferase 41 U/L (17-59); Bilirubin,Total 0.6 mg/dL (0.2-1.3); Blood Urea Nitrogen 15 mg/dL (9-20); Calcium 9.1 mg/dL (8.4-10.2); Carbon Dioxide 28 mmol/L (22-30); Chloride 106 mmol/L (98-107); Estimated Glomerular Filt Rate > 60; Glucose 91 mg/dL (65-110); Potassium 4.1 mmol/L (3.4-5.0); Sodium 142 mmol/L (137-145)
[2024-06-25 21:28] LABS: Iron 123 ug/dL (49-181)
[2024-06-25 21:40] LABS: Folic Acid 8.8 ng/mL (2.76->20); Percent Iron Saturation 37 % (20-50)
[2024-06-28 14:44] LABS: Soluble Transferrin Receptor 1.02 mg/L (0.76-1.76)
[2024-06-28 20:03] LABS: Platelet Antibody, Direct NEGATIVE (NEGATIVE)
== END 2024-06-25 14:01 | disposition home or self-care (01) ==
PROVIDERS: PCP Internal Medicine; Visit Provider Internal Medicine Hematology & Oncology
DX: D64.9 Anemia, unspecified (principal); D69.59 Other secondary thrombocytopenia
CPT/HCPCS: 36415; 80053; 82607; 82728; 82746; 83540; 83550; 83921; 84238; 85025; 86023

== ENCOUNTER 2024-07-14 07:27 | Outpatient (CLI) | payer OTHER, SELFPAY ==
--- NOTE | ~2024-07-14 | US_ITS ---
US abdomen complete EXAMINATION: US Abdomen Complete INDICATION: Secondary thrombocytopenia PROCEDURE: Realtime High Resolution abdomen ultrasound. COMPARISON: No prior studies for comparison FINDINGS: There is a gallstone at the gallbladder neck. No gallbladder wall thickening. Common bile duct measures mm. Liver echotexture within normal limits without focal mass. Pancreas within normal limits. Pancreati c tail is obscured by bowel gas. Spleen is unremarkeable. Renal echotexture is within normal limits bilaterally without hydronephrosis, contour deforming mass or renal stone. Right kidney measures 10.8 cm. Left kidney measures 10.4 cm. Visualized aspects of the aorta and IVC are within normal limits. Portal vein is patent. No sonograph ic Adhikari's sign indicated by the technologist. IMPRESSION: 1: Cholelithiasis. Reviewed, dictated and finalized at location A. IMPRESSION: 1: Cholelithiasis.
--- OUTSIDE RECORDS SUMMARY | 2024-07-14 07:31 | XMS_ITS | Clinical Summary ---
Author Organization [facility] [address] Address [address] [place] [address] Care Team Providers Care Quiller Runner Name Role Phone Apryl Beckford MD Primary [...] Encounters Date Type Department Care Team Description 07/02/2024 Orders Only [facility] Oncology and Hematology - [place] [address] [place] [address] Darek Purdy MD 06/26/2024 External Device Data STL ABSTRACTION Provider, Abstract 06/26/2024 External Device Data STL ABSTRACTION Provider, Abstract 06/26/2024 External Device Data STL ABSTRACTION Provider, Abstract 06/26/2024 Orders Only [facility] Oncology and Hematology - [place] [address] [place] [address] Darek Purdy MD 06/25/2024 1:30 PM CDT Office Visit [facility] Oncology and Hematology - [place] [address] [place] [address] Darek Purdy MD Chronic anemia (Primary Dx); [...] on file Legal 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 Gender Identity Not on file Sexual Orientation [...] P M CDT Height 172.7 cm (5' 8) 06/25/2024 1:13 PM CDT Body Mass Index 25.18 06/25/2024 1:13 PM CDT Plan of Treatment Upcoming Encounters Date Type Department Care Team (Late st Contact Info) Description 07/19/2024 4:30 PM CDT Telephone Check Up [facility] Oncology and Hematology - [place] [address] [place] [address] Darek Purdy MD [address] [facility] [address] [place] [address] Health Maintenance Due Date Last Done Comments Pre-Diabetes and Diabetes Screening 1983 DTAP/TDAP/TD VACCINES (1 - Tdap) 08/15/2002 HEPATITIS B VACCINES (1 of 3 - 19+ 3-dose series) 08/15/2002 INFLUENZA VACCINE (#1) 2023 11/23/2021 HPV VACCINES Aged Out No longer eligi ble based on patient's age to complete this topic Procedures Procedure Name Priority Date/Time Associated Diagnosis Comments CBC WITH AUTODIFFERENTIAL Routine 2024 3:32 PM CDT IRON LEVEL Routine 06/25/2024 2:33 PM CDT TRANSFERRIN RECEPTOR TFR SOLUBLE Routine 06/25/2024 2:01 PM CDT COMPREHENSIVE METABOLIC PANEL Routine 06/25/2024 10:21 AM CDT from Last 3 Months Results * CBC WITH AUTODIFFERENTIAL (06/25/2024 3:32 PM CDT) Blood us Darek Purdy MD HEMATOLOGY ORDERABLES Final Res ult * IRON LEVEL (06/25/2024 2:33 PM CDT) Blood us Darek Purdy MD CHEMISTRY ORDERABLES Final Resu lt * TRANSFERRIN RECEPTOR TFR SOLUBLE (06/25/2024 2:01 PM CDT) Blood us Darek Purdy MD CHEMISTRY ORDERABLES Final Resu lt * COMPREHENSIVE METABOLIC PANEL (06/25/2024 10:21 AM CDT) Blood us Darek Purdy MD CHEMISTRY ORDERABLES Final Resu lt from Last 3 Months Insurance [employer] OPEN CHOICE PPO Care Teams Quiller Runner Relationship Specialty Start Date End Date Apryl Beckford MD [address] [place] [address] PCP - General Internal Medicine 06/25/24
--- OUTSIDE RECORDS SUMMARY | 2024-07-14 07:31 | XMS_ITS | CONTINUITY OF CARE DOCUMENT ---
Author Name matthew beatrizgeorge Address Unknown Organization [facility] Address [address] [place] [address] Phone [phone] Care Team Providers Care Actuarial Trainee Name Role Phone Jaycob Zavala MD Unavailable [phone] PEDRITO RANKIN MD Unavailable [phone] PEDRITO RANKIN MD Unavailable PROBLEMS Condition Status Date Provider Notes Cardiology examination active Jaycob Zavala MD Hyperlipidemia active Jaycob Zavala MD Chest pain active Jaycob Zavala MD G E R D active Jaycob Zavala MD ENCOUNTERS Date Type Provider Location Encounter Diag nosis - In-person encounter Office Visit Jaycob Zavala MD [facility] G E R [facility] - In-person encounter Office Visit Jaycob Zavala MD [facility] Cardiology examinationHyperlipidemiaChest pain VITAL SIGNS Date [...] Policy type / Coverage type Wojciech red libertarian ID [employer] Commercial insurance company [id number] ADVANCE DIRECTIVES Name Date DISCUSSED - NO [...]
--- OUTSIDE RECORDS SUMMARY | 2024-07-14 07:32 | XMS_ITS | Data Portability ---
Author Organization [place] [facility], Main Office Address [address] [place] [address] Assessment Encounter Date Assessment Date Assessment LastModified by Organization Details LastModified Time 01/31/2023 01/31/2023 07/26/2022: TSH/FT4/CBC/C MP: WNL LDL [...] 5.13 PLT 148 Not available 04/02/2024 10:21:13 07/02/2024 07/02/2024 07/26/2022: TSH/FT4/CBC/C MP: WNL LDL 114 A1C 5.6 VIT D 53.5 01/25/2023: Stable 07/26/2022: TSH/FT4/CBC/C MP: WNL LDL 114 A1C 5.6 VIT D 53.5 01/25/2023: Stable 08/01/2023: PLT 143L A1C 5.7 11/23/2023: TSH 4.590H, FT4 1.33 PLT 142 A1C 5.5 03/28/2024: TSH 5.13 PLT 148 06/28/2024: A1C 5.5 Stable Not available 07/02/2024 12:08:17 Plan of Treatment Reminders Order Date Submit Date Provider Last Modified By Organization Details Last Modified Time Details Appointments Follow Up 15 2024 10:00A M Apryl hughes MD Not available Not available Not available Lab HbA1c (hemoglob in A1c), blood 2024 025 [facility], [address] [facility], [place], [address], 07/02/2024 12:10:56 lipid panel, serum 2024 025 [facility], [address] [facility], [address], [place], [address], 07/02/2024 12:10:55 CBC w/ auto diff 2024 025 [facility], [address], [address], [place], [address], 07/02/2024 12:10:56 CMP, serum or plasma 2024 025 [facility], [address], [address], [place], [address], 07/02/2024 12:10:55 TSH + free T4, serum 2024 025 [facility], [address], [address], [place], [address], 07/02/2024 12:10:56 lipid panel, serum 2024 025 [facility], [address], [address], [place], [address], 06/29/2024 04:18:10 CBC w/ auto diff 2024 025 [facility], [address], [address], [place], [address], 06/25/2024 17:49:46 CMP, serum or plasma 2024 025 [facility], [address], [address], [place], [address], 06/26/2024 07:59:35 TSH + free T4, serum 2024 025 [facility], [address], [address], [place], [address], 06/29/2024 04:18:11 HbA1c (hemoglob in A1c), blood 2024 025 [facility], [address], [place], [address], 06/29/2024 04:18:12 HbA1c (hemoglob in A1c), blood 2023 024 [email or web address] [facility], [address], [address], [place], [address], 05/28/2024 16:38:52 lipid panel, serum 2023 024 [email or web address] [facility], [address], [address], [place], [address], 05/28/2024 16:38:51 CBC w/ auto diff 2023 024 [email or web address] [facility], [address], [address], [place], [address], 05/28/2024 16:38:52 CMP, serum or plasma 2023 024 [email or web address] [facility], [address], [address], [place], [address], 05/28/2024 16:38:52 TSH + free T4, serum 2023 024 [email or web address] [facility], [address], [address], [place], [address], 05/28/2024 16:38:52 HbA1c (hemoglob in A1c), blood 2023 024 [facility], [address], [address], [place], [address], 11/24/2023 07:37:06 CBC w/ auto diff 2023 024 [facility], [address], [address], [place], [address], 08/04/2023 07:38:54 lipid panel, serum 2023 024 [facility], [address], [address], [place], [address], 11/24/2023 07:37:06 CBC w/ auto diff 2023 024 [facility], [address], [address], [place], [address], 11/24/2023 07:37:06 CMP, serum or plasma 2023 024 [facility], [address], [address], [place], [address], 11/24/2023 07:37:06 TSH + free T4, serum 2023 024 [email or web address] [facility], [address], [address], [place], [address], 01/30/2024 09:13:29 HbA1c (hemoglob in A1c), blood 2022 023 [email or web address] [facility], [address], [address], [place], [address], 01/30/2024 09:13:28 lipid panel, serum 2022 023 [facility], [address], [address], [place], [address], 01/30/2024 09:13:28 CBC w/ auto diff 2022 023 [email or web address] [facility], [address], [address], [place], [address], 01/30/2024 09:13:28 CMP, serum or plasma 2022 023 [email or web address] [facility], [address], [address], [place], [address], 01/30/2024 09:13:28 TSH + free T4, serum 2022 023 [email or web address] [facility], [address], [address], [place], [address], 01/30/2024 09:13:28 Referral gastroent erologist referral - Please call patient to schedule an appointme nt. Thank you. 2024 025 HAILEY Escobar MD, [address], [address], [place], [address], 07/10/2024 11:20:28 gastroent erologist referral - Please call patient to schedule an appointme nt. Thank you. 2024 025 PASQUALE Escobar MD, [address], [address], [place], [address], 07/01/2024 04:03:25 physical therapist referral - Please call patient to schedule an appointme nt. Thank you. [address] [facility], [address], [place], [address], 05/11/2024 17:31:25 hematolog ist referral - Please call patient to schedule an appointme nt. Thank you. 2024 025 PASQUALE Purdy MD, [address], [place], [address], 07/01/2024 04:03:25 gastroent erologist referral 2023 024 PASQUALE Escobar MD, [address], [address], [place], [address], 12/05/2023 10:19:25 hematolog ist referral 2023 024 [email or web address] Purdy MD, [address], [place], [address], 06/25/2024 08:55:12 cardiolog ist referral 2023 024 [place], [address], [place], [place], [address], 08/04/2023 15:55:15 Procedures None recorded. Surgeries None recorded. Imaging US, thyroid - Please call patient to schedule. 2024 025 [facility] ([facility]), [address] [place], [address], 05/03/2024 15:44:09 CT, chest, w/o contrast - Auth was denied stating pt needs to have a chest xray first. Sent pt case to Dr. Nayla hughes 2023 024 [email or web address] Not available 08/24/2023 14:00:06 Medication Orders None recorded. Patient TargetsNo targets recorded. Patient InstructionsNo instructions recorded. Reason for Referral Game [employer] Helper Referral for At ypical chest pain Referring Physician: Apryl Beckford [facility], Encounter Date: 08/03/2023 Referring Physician: Apryl Beckford [facility], Encounter Date: 11/28/2023 Supervisor [employer] Referral for Dysphagia Referring Physician: Apryl Beckford [facility], Encounter Date: 11/28/2023 Please call patient to sched ule an appointment. Thank you. Referring Physician: Apryl [facility]ford [facility], Encounter Date: 04/02/2024 Supervisor [employer] Referral for Dysphagia Please call patient to schedule an appointment. Thank you. Referring Physician: Apryl [facility]ford [facility], Encounter Date: 04/02/2024 Physical Therapist Referral for Low back pain Please call patient to schedule an appointment. Thank you. Referring Physician: Apryl [facility], Encounter Date: 04/02/2024 Supervisor [employer] Referral for Dysphagia Please call patient to schedule an appointment. Thank you. Referring Physician: Kit Rubio [facility], Encounter Date: 07/02/2024 Results Created Date Observation Date Name Description Value Unit Range Abnormal Flag Note LastModifiedBy Organization Detail LastModifiedTime 08/10/19 24 XR, chest , 2 view [facility] [address] [facility] [address] Patien t Name: DIPTI RUBIO RA Access ion #: [id number] Sex: M : 1985 8 3 [...] at 2023 11:09: 16 AM Page 1 [facility] [address] [place], [address], 08/10/2023 12:10:57 08/10/19 24 08/10/2023 imagi ng/di agnos tic resul t No observ ation record ed. [facility] [address] [place], [address], 08/10/2023 12:20:40 09/16/19 24 09/16/2023 imagi ng/di agnos tic resul t No observ ation record ed. [facility] [address], [place], [address], 09/16/2023 19:34:51 09/22/19 24 09/22/2023 imagi ng/di agnos tic resul t No observ ation record ed. [facility] [address] [facility] [address] [facility] [address], [facility] [place], [address], 09/22/2023 17:41:30 05/04/19 25 05/03/2024 US, head + neck, soft tissu e [facility] [address] [facility], [place] [address] 97-80 8 Patien t Name: DIPTI RUBIO RA Access ion #: [id number] Sex: M : 1985 8 5 Dictat ed By: Cora Hawk Attend ing Physic issa: ALFIE TAMAYO Orderi ng Physic issa: ALFIE TAMAYO Exam Date: 2024 [...] > or = 1.0 cm Page 1 [facility] [address] [facility] [address], [place] [address] Patien t Name: DIPTI RUBIO RA Access ion #: [id number] Sex: M : 1985 8 5 Dictat ed By: Cora aHwk Attend ing Physic issa: ALFIE Christina ASTRID MERIDA Orderi ng Physic issa: ALFIE TAMAYO Exam Date: 2024 [...] of the ACR TI-RAD S Commit alex. Tesler et al., J Am Mike Radiol 2017;1 4:587- 595. Electr onical ly Signed by: Cora Hawk at 2024 14:39: 35 PM Page 2 INTERFACE [facility] (Imaging) [address] [place], [address], 05/03/2024 15:41:47 05/04/19 25 05/03/2024 US, thyro id No observ ation record ed. [facility] [address] [place], [address], 05/03/2024 15:44:09 Result Notes None recorded. Problems Name Problem SNOMED Code Status Onset Date Resolution Date Notes Provider Name and Address Organization Details Recorded Time Upper respiratory infection 89439805 Active 2022 SHYANNE White - [facility] [employer] [facility] 17:35:31 COVID-19 651552779 Active 2022 Miya lozano, [place] - [facility] [place] [facility] 3 12:46:58 Allergic rhinitis 13109529 Active 2022 Apryl hughes MD [address], [address], [place], [address], [facility] - [facility] [place] [facility] 3 11:26:26 Thoracic back pain 494135533 Active 2022 Apryl hughes MD [address], [address], [place], [address], [facility] - [facility] 3 11:26:31 Hyperlipidemia 12095476 Active 2022 Apryl hughes MD [address], [address], [place], [address], [facility] - [facility] 3 11:26:39 Hyperglycemia 62249477 Active 2022 Apryl hughes MD [address], [address], [place], [address], [facility] - [facility] 3 11:26:44 Injury of lower leg 413619470 Active 2022 Miya lozano, [facility] [place] [facility] 3 12:54:32 Gastroesophage al reflux disease without esophagitis 754293067 Active 2023 BERNY Marie, [place] - [facility] 4 15:06:54 Dysphagia 69536370 Active 2023 BERNY Marie, [place] [facility] [place] [facility] 4 15:32:57 Atypical chest pain 141426221 Active 2023 Apryl hughes MD [address], [address], [place], [address], [facility] - [facility] 4 11:25:48 Thrombocytopen ic disorder 920406337 Active 2023 Apryl hughes MD [address], [address], [place], [address], [facility] [employer] [facility] 4 11:28:16 Chest pain 77848083 Active 2023 Ivet Mak MA null, [place] - [facility] [employer] [facility] 4 14:10:29 Painless rectal bleeding 354171555 Active 2023 Apryl hughes MD [address], [address], [place], [address], [facility] [employer] [facility] 4 10:37:52 Hypothyroidism 42361944 Active 2024 Apryl hughes MD [address], [address], [place], [address], [facility] [employer] [facility] [employer] [facility] 5 18:04:36 Low back pain 983251838 Active 2024 Apryl hughes MD [address], [place], [address], [facility] [employer] [facility] [employer] [facility] 5 10:42:08 Problem Notes None recorded. Procedures Surgical History Date Name Laterality Status Provider Name and Address Organization Details Recorded Time [facility] completed Not Available [facility] [facility] 04/15/2022 01:25:12 Imaging Results None recorded. Procedure Notes None recorded. Medical Equipment None [...] Not Available Not Available Not Avai lable famotidine (bulk) 40mg daily active Not Available Not Available No t Available [facility] 55 mcg nasal spray aerosol [place] 2 sprays every day by intranasa l [...] Updated DateTime 5 172.72 cm 25.4 kg/m2 67624.9 3 g 97.6 [degF] 72 /min 114 mm[Hg] 72 mm[Hg] SRINI Laird [facility] 5 10:25:45 Date Recorded Body height Body mass index (BMI) Body weight Body temperature Heart rate Oxygen saturation Oxygen saturation in Arterial blood by Pulse oximetry Systolic blood pressure Diastolic blood pressure Provider Name and Address Organization Details Last Updated DateTime 5 172.72 cm 24.8 kg/m2 01073.5 6 g 97.9 [degF] 69 /min 98 % 98 % 116 mm[Hg] 68 mm[Hg] Loretta Lamar MA [facility] 5 11:53:05 Date Recorded Body height Body mass index (BMI) Body weight Body temperature Heart rate Systolic blood pressure Diastolic blood pressure Provider Name and Address Organization Details Last Updated DateTime 4 172.72 cm 24.6 kg/m2 05331.9 6 g 97.7 [degF] 72 /min 114 mm[Hg] 70 mm[Hg] Delmis Pack Amanda AR [employer] [facility] [employer] [facility] 4 11:03:20 Date Recorded Body height Body mass index (BMI) Body weight Body temperature Heart rate Respiratory rate Oxygen saturation Oxygen saturation in Arterial blood by Pulse oximetry Systolic blood pressure Diastolic blood pressure Provider Name and Address Organization Details Last Updated DateTime 4 172.72 cm 24.9 kg/m2 46387.1 5 g 97.5 [degF] 64 /min 16 /min 99 % 99 % 108 mm[Hg] 62 mm[Hg] Alistair Peterson LPN [place] [employer] [facility] [employer] [facility] 4 10:29:26 Date Recorded Body height Body mass index (BMI) Body weight Body temperature Heart rate Systolic blood pressure Diastolic blood pressure Provider Name and Address Organization Details Last Updated DateTime 3 172.72 cm 25.5 kg/m2 96077.5 2 g 97.5 [degF] 72 /min 100 mm[Hg] 62 mm[Hg] Delmis Pack [facility] [facility] [employer] [facility] 3 11:09:24 Social History Question Answer Notes LastModified by Organization Details LastModified Time Tobacco Smoking Status Former Smoker was 1/2 ppd --quit 2011 Not Available [facility] 04/15/2022 01:24:55 Do You Have An Advance Directive? No MIGRATION.030 [id number] Information not available 04/15/2022 What Is Your Level Of Caffeine Consumption? Moderate MIGRATION.030 [id number] Information not available 04/15/2022 In The 14 Days Before Symptom Onset, Have You Had Close Contact With A Laboratory-confi rmed COVID-19 While That Case Was Ill? No MIGRATION.030 614734 Information not available 04/15/2022 In The 14 Days Before Symptom Onset, Have You Had Close Contact With A Person Who Is Under Investigation For COVID-19 While That Person Was Ill? No MIGRATION.030 [id number] Information not available 04/15/2022 What Type Of Diet Are You Following? REGULAR MIGRATION.0301 [id number] Information not available 04/15/2022 What Is The Highest Grade Or Level Of School You Have Completed Or The Highest Degree You Have Received? [id number] MIGRATION.0301 823141 Information not available 04/15/2022 Have There Been Any Changes To Your Family Or Social Situation? No MIGRATION.0301 [id number] Information not available 04/15/2022 What Is The Fluoride Status Of Your Home? Unknown MIGRATION.0301 135042 Information not available 04/15/2022 When Did You Quit Smoking? 11-15yearssincelast cigarette [email or web address] Information not available 01/31/2023 Are There Any Guns Present In Your Home? No MIGRATION.0301 [id number] Information not available 04/15/2022 Do You Use Insect Repellent Routinely? Yes MIGRATION.0301 [id number] Information not available 04/15/2022 Where Do You Live? SingleLevelHouse MIGRATION.0301 454291 Information not available 04/15/2022 Do You Have A Medical Power Of Shove Up? No MIGRATION.0301 987224 Information not available 04/15/2022 What Was The Date Of Your Most Recent Tobacco Screening? 07/02/2024 [email or web address] Information not available 07/02/2024 Do You Have Any Pets? No MIGRATION.0301 [id number] Information not available 04/15/2022 What Is Your Relationship Status? MIGRATION.0301 [id number] Information not available 04/15/2022 Do You Have Smoke And Carbon Monoxide Detectors In Your Home? Yes MIGRATION.0301 172630 Information not available 04/15/2022 Are You Passively Exposed To Smoke? No MIGRATION.0301 808838 Information not available 04/15/2022 Are There Any Smokers In Your House? No MIGRATION.0301 440099 Information not available 04/15/2022 Do You Use Sunscreen Routinely? No MIGRATION.0301 756539 Information not available 04/15/2022 Have You Recently Traveled Abroad? No MIGRATION.0301 708307 Information not available 04/15/2022 Do You Have Any Dietary Restrictions? No MIGRATION.0301 146513 Information not available 04/15/2022 Sex: Male Functional Status Question Answer Note LastModified by Organizat ion Details LastModified Time Do you use any illicit or recreational drugs? No MIGRATION.[id number] Information not available 04/15/2022 Do you or have you ever used any other forms of tobacco or nicotine? No MIGRATION.414857 2906 Information not available 04/15/2022 What is your level of alcohol consumption? Occasional MIGRATION.645238 1283 Information not available 04/15/2022 Are you currently employed? 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 Occasional MIGRATION.263899 7680 Information not available 04/15/2022 Mental Status Question Answer Note LastModified by Organizat ion Details LastModified Time Do you feel stressed (tense, restless, nervous, or anxious, or unable to sleep at night)? [id number] MIGRATION.[id number] 6 Information not available 04/15/2022 Family History Relationship Description Onset Age of this Age Resolved Age Notes LastModified by Organization Details LastModified Time Father Heart disease MIGRATION.159 [id number] Not available 04/15/2022 01:25:16 Father Cardiac pacemaker in situ MIGRATION.440 [id number] Not available 04/15/2022 01:25:16 Father Heart valve replacement MIGRATION.246 [id number] Not available 04/15/2022 01:25:16 Mother Disorder of thyroid gland MIGRATION.394 2010862 Not available 04/15/2022 01:25:16 Paternal Uncle Malignant tumor of stomach [email or web address] Not available 2022 11:07:45 Medical History Condition Response BLINDNESS N NERVE DISEASE N RHEUMATIC FEVER N BLADDER PROBLEMS N KIDNEY STONES N MRSA N OTHER # 1 N POLIO N LUNG DISEASE/DISORDER N HISTORY OF DRUG ABUSE N RADIATION / CHEMOTHERAPY N COPD N Other # 2 N BLOOD DISEASES N EAR OR HEARING PROBLEMS N MUMPS N SHINGLES N DEPRESSION (INCLUDING POST ) N BOWEL PROBLEMS N STROKE/TIA N ULCERS N BENIGN PROSTATIC [...] virus, quadrivalent, PF 11/23/2021 completed Not Available [facility] 01:30:51 Past Encounters Encounter ID Performer Location Encounter Start Date Encounter Closed Date Diagnosis/Indication Diagnosis SNOMED-CT Code Diagnosis ICD10 Code Diagnosis Note [id number] Apryl christina MD [facility] Internal Med [place] [address] [place] [address] 11/23/2021 00:00:00 11/23/2021 16:57:26 [id number] Apryl christina MD [facility] Internal Med [place] [address] [place] [address] 04/05/2022 00:00:00 04/05/2022 10:01:11 [id number] Apryl christina MD [facility] Internal Med [place] [address] [place] [address] 08/02/2022 11:15:51 08/02/2022 11:52:48 Screening - NAD 943082766 Z13.9 Get yearly flu shotShould do Tdap if not doneGet COVID 19 vaccine and its boosters RTC in 3 monthsDo labsER if worse, he did verbalize his understand ing of the above Allergic rhinitis 906472 04 J30.9 On nasocortDo es well Thoracic back pain 79425 8004 M54.6 Xray C-spine: 11/23/2021 : DDD, see casePT referral given Hyperlipidemia 60730620 E78.5 Agreeable to do lipitor, all side effects explainedG et labs Hyperglycemia 50753368 R 73.9 Get A1C [id number] Apryl christina MD [facility] Internal Med [place] [address] [place] [address] [place] [address] 01/31/2023 10:59:50 01/31/2023 11:55:06 Screening - NAD 509217577 Z13.9 Get yearly flu shotShould do Tdap if not doneGet COVID 19 vaccine and its boosters RTC in 3 monthsDo labsER if worse, he did verbalize his understand ing of the above Allergic rhinitis 620230 04 J30.9 On nasocortDo es well Thoracic back pain 75939 8004 M54.6 Xray C-spine: 11/23/2021 : DDD, see casePT referral given Hyperlipidemia 04021222 E78.5 Agreeable to do lipitor, all side effects explainedG et labs Hyperglycemia 63389122 R 73.9 Get A1C [id number] Apryl christina MD [facility] Internal Med [place] [address] [place] [address] [address] 08/03/2023 10:57:36 08/03/2023 11:30:21 Screening - NAD 142354275 Z13.9 Get yearly flu shotShould do Tdap if not doneGet COVID 19 vaccine and its boosters RTC in 3 monthsDo labsER if worse, he did verbalize his understand ing of the above Allergic rhinitis 070050 04 J30.9 On nasocortDo es well Thoracic back pain 59673 8004 M54.6 Xray C-spine: 11/23/2021 : DDD, see casePT referral given Hyperlipidemia 85154608 E78.5 On atorvastat in 40mg dailyGet labs Hyperglycemia 62136558 R 73.9 Get A9GFackg to not take any meds, diet and exercise, states that was eating a lot of ice cream Dysphagia 92988277 R13.[address] Escobar 05/17/2023 On omeprazole S/p EGD 05/31/2023 Keep apt with GI Atypical chest pain 1025 04597 R07.89 Feels that he has a feeling of something stuck in the mid chest area, no obvious chest pain, no palpitatio ns, no presycnope or syncope, describes as a discomfort not even painExtens jess family history of CADWill get CT chest and also get cardiology referralWi ll see Dr Zavala 08/04/2023 at 2 pm Thrombocyt openic disorder 989331856 D69.6 Repeat the CBCMay need to see hematology [id number] Apryl christina MD [facility] Internal Med [place] [address] [facility] y , [facility] [place] [address] 11/28/2023 10:19:13 11/28/2023 11:04:57 Screening - NAD 916506563 Z13.9 C-scope : Dr Escobar, internal hhoids, next in 10 years Get yearly flu shot, declined 11/28/2023 Should do Tdap if not doneGet COVID 19 vaccine and its boosters RTC in 3 monthsDo labsER if worse, he did verbalize his understand ing of the above Allergic rhinitis 745255 04 J30.9 On nasocortCa n do OTC zyrtecDoes well Thoracic back pain 85406 8004 M54.6 Xray C-spine: 11/23/2021 : DDD, see caseDoes well now 11/28/2023 Hyperlipidemia 64535074 E78.5 On atorvastat in 40mg dailyGet labs Hyperglycemia 00652841 R 73.9 Get Q1YJtlef to not take any meds, diet and exercise, states that was eating a lot of ice cream Dysphagia 60519767 R13.[address] Escobar 05/17/2023 On omeprazole S/p EGD 05/31/2023 , distal esophageal strictureK eep apt with GI Atypical chest pain 1025 26433 R07.89 Feels that he has a feeling of something stuck in the mid chest area, no obvious chest pain, no palpitatio ns, no presycnope or syncope, describes as a discomfort not even painExtens jess family history of CAD Dr Zavala 08/04/2023 at [address] Carrierrelbert 09/22/2023 , f/u PRN XR chest: 08/10/2023 : NegECHO 09/22/2023 : SLHVStress test 09/16/2023 : Neg Thrombocyt openic disorder 400799502 D69.6 See hematology Painless r ectal bleeding 496069918 K62.5 C-scope : Dr Escobar, internal hhoids, next in 10 years [id number] Apryl christina MD [facility] [address] [place] [address] 04/02/2024 10:18:11 04/02/2024 10:47:00 Screening - NAD 156263470 Z13.9 C-scope : Dr Escobar, internal hhoids, next in 10 years Get yearly flu shot, declined 11/28/2023 Should do Tdap if not doneGet COVID 19 vaccine and its boosters RTC in 3 monthsDo labsER if worse, he did verbalize his understand ing of the above Allergic rhinitis 157045 04 J30.9 On nasocortCa n do OTC zyrtecDoes well Thoracic back pain 00515 8004 M54.6 Xray C-spine: 11/23/2021 : DDD, see caseDoes well now 11/28/2023 Hyperlipidemia 87504945 E78.5 On atorvastat in 40mg dailyGet labs Hyperglycemia 45735290 R 73.9 Get O8WFuizo to not take any meds, diet and exercise, states that was eating a lot of ice cream Dysphagia 02384335 R13.[address] Escobar 05/17/2023 On omeprazole S/p EGD 05/31/2023 , distal esophageal strictureK eep apt with GI Atypical chest pain 1025 70322 R07.89 Feels that he has a feeling of something stuck in the mid chest area, no obvious chest pain, no palpitatio ns, no presycnope or syncope, describes as a discomfort not even painExtens jess family history of CAD Dr Zavala 08/04/2023 at [address] Chriselbert 09/22/2023 , f/u PRN XR chest: 08/10/2023 : NegECHO 09/22/2023 : SLHVStress test 09/16/2023 : Neg Thrombocyt openic disorder [id number] D69.6 See hematology Painless r ectal bleeding [id number] K62.5 C-scope : Dr Escobar, internal hhoids, next in 10 years Hypothyroidism 25876883 E03.9 Get labsGet US thyroid done Low back pain 198255375 M54.50 No acute trauma, no fall, no N/T in the LE, no loss or bowel or bladder controlSta milo that the right side of the lower back feels 'tight'José l get PT to eval and treat and it has helped him in the past, if not better will need Xrays or see ortho [id number] Apryl christina MD [facility] [address] [place] [address] 07/02/2024 11:45:59 07/02/2024 12:27:42 Screening - NAD [id number] Z13.9 C-scope : Dr Escobar, internal hhoids, next in 10 years Get yearly flu shot, declined 11/28/2023 Should do Tdap if not doneGet COVID 19 vaccine and its boosters RTC in 3 monthsDo labsER if worse, he did verbalize his understand ing of the above Allergic rhinitis 114488 04 J30.9 On nasocortCa n do OTC zyrtecDoes well Thoracic back pain 12680 8004 M54.6 Xray C-spine: 11/23/2021 : DDD, see caseDoes well now 11/28/2023 Hyperlipidemia 43478684 E78.5 On atorvastat in 40mg dailyGet labs Hyperglycemia 44903686 R 73.9 Get T6VItzxk to not take any meds, diet and exercise, states that was eating a lot of ice cream Dysphagia 75304384 R13.[address] Escobar 05/17/2023 On omeprazole S/p EGD 05/31/2023 , distal esophageal strictureK eep apt with GI Atypical chest pain 1025 01917 R07.89 Feels that he has a feeling of something stuck in the mid chest area, no obvious chest pain, no palpitatio ns, no presycnope or syncope, describes as a discomfort not even painExtens jess family history of CAD Dr Zavala 08/04/2023 at [address] Qarryum 09/22/2023 , f/u PRN XR chest: 08/10/2023 : NegECHO 09/22/2023 : SLHVStress test 09/16/2023 : Neg Thrombocyt openic disorder 406851832 D69.6 See hematology OV 07/02/2024 :Stable PLT count Painless r ectal bleeding 547502243 K62.5 C-scope : Dr Escobar, internal hhoids, next in 10 years Hypothyroidism 79614630 E03.9 US thyroid 05/03/2024 : NegTSH/FT4 : WNL 06/28/2024 Low back pain 165856387 M54.50 No acute trauma, no fall, no [...] Member ID Carson Member ID Guarantor Name 01/31/2023 1 [employer] [id number] Yee Childers [id number] 04 Sumantra Ray 08/03/2023 1 [employer] [id number] Yee Childers [id number] 04 Sumantra Ray 11/28/2023 1 [employer] [id number] Yee Trinhosh [id number] 04 Sumantra Ray 04/02/2024 1 [employer] [id number] Yee Childers [id number] 04 Sumantra Ray 07/02/2024 1 [employer] [id number] Yee Childers [id number] Sumantra Ray Notes Date Note Type Note Provider Name and Address Organization Details Recorded Time 01/31/2023 text/html OV 11/23/2021:He re to establish [...] he feels well, recently moved back from [place] Apryl Beckford MD [address], [place], [address], [facility] [employer] 01/31/2023 15:29:14 08/03/2023 text/html OV 11/23/2021:He re [...] he feels well, recently moved back from [place] OV 08/03/2023: Here for his routine apt, he is doing well today, still has some chest discomfort, feels that he has something 'stuck' in the chest, not associated with foodHe did do the EGD with Dr Luz Beckford MD [address], [place], [address], [facility] [employer] [facility] 08/03/2023 14:13:56 11/28/2023 text/html OV 11/23/2021:He re to establish carePast [...] he feels well, recently moved back from [place] OV 08/03/2023: Here for his routine apt, he is doing well today, still has some chest discomfort, feels that he has something 'stuck' in the chest, not associated with foodHe did do the EGD with Dr Escobar OV 11/28/2023: Here for his f/u apt, he is doing well today, he did do the labs on 11/23/2023 Apryl Beckford MD [address], [facility] [address], [place], [address], [facility] [employer] [facility] 11/28/2023 11:12:43 04/02/2024 text/html OV 11/23/2021:He re [...] he feels well, recently moved back from [place] OV 08/03/2023: Here for his routine apt, [...] do the labs, see NEIDA Beckford MD [address], [address], [place], [address], [facility] [employer] [facility] 04/02/2024 10:45:22 07/02/2024 text/html OV 11/23/2021:He re to establish [facility] Hx:DMIIEx smokerReviewed social family and surgical historyHe [...] he feels well, recently moved back from [place] OV 08/03/2023: Here for his routine apt, [...] he did do the labs, see NEIDA OV 07/02/2024: Here for his f/u apt, he is doing very well today, he did do the labs Apryl Beckford MD [address], [address], [place], [address], [facility] [employer] [facility] 07/02/2024 12:45:57
== END 2024-07-14 07:28 | disposition home or self-care (01) ==
PROVIDERS: PCP Internal Medicine; Visit Provider Internal Medicine Hematology & Oncology
DX: D69.59 Other secondary thrombocytopenia (principal); K80.20 Calculus of gallbladder without cholecystitis without obstruction
CPT/HCPCS: 76700

== ENCOUNTER 2025-01-23 12:53 | Outpatient (CLI) | payer OTHER, SELFPAY ==
[2025-01-23 13:15] LABS: Hematocrit 45.7 % (42.0-52.0); Hemoglobin 15.5 g/dL (14.0-18.0); Mean Corpuscular HGB Conc 33.9 g/dl (32-36); Mean Corpuscular Hemoglobin 29.1 pg (26-34); Mean Corpuscular Volume 85.9 fl (80-100); Platelet Count Result 202 k/mm3 (150-375); Red Blood Count 5.32 M/mm3 (4.6-6.20); White Blood Count 6.3 K/mm3 (4.5-10.0)
--- OUTSIDE RECORDS SUMMARY | 2025-01-23 17:02 | XMS_ITS | Clinical Summary ---
Author Organization [facility] Address [address] [place] [address] Care Team Providers Care Emergency Department Manager Name Role Phone Merissa Escobar MD Primary Care Provider [phone] Allergies No known active allergies Social History Tobacco Use Types Packs/Day Years Used Date Smoking Tobacco: Never Assessed Sex and Gender Information Value Date Recorded Sex Assigned at Not on file Legal Sex Male 4:50 PM CDT Gender Identity Not on file Sexual Orientation Not on file Plan of Treatment Health Maintenance Due Date Last Done Comments Depression Screening 1985 Hepatitis C Screening 1985 DTaP/Tdap/Td Vaccine (1 - Tdap) 08/15/1994 Varicella Vaccines (1 of 2 - 13+ 2-dose series) 08/15/1996 Hepatitis B Screening 08/15/2001 Regular Well Visit/Exam 18-64 08/15/2001 HPV Vaccines (1 - 3-dose SCD M series) 08/15/2010 Influenza Vaccine (#1) 2024 11/23/2021 Pneumococcal vaccine <65 Aged Out No longer eligible based on patient's age to complete this topic Insurance [employer] [facility] Care Teams Emergency Department Manager Relationship Specialty Start Date End Date Merissa Escobar MD [address] [place] [address] PCP - General Gastroenterology 08/01/24
--- OUTSIDE RECORDS SUMMARY | 2025-01-23 17:02 | XMS_ITS | Clinical Summary ---
Author Organization [facility] Address [address] [place] [address] Care Team Providers Care Child And Family Therapist Name Role Phone Apryl Beckford MD Primary [...] Encounters Date Type Department Care Team Description 01/15/2025 External Device Data [facility] ABSTRACTION Provider, Abstract 12/18/2024 External Device Data [facility] Provider, Abstract 12/12/2024 External Device Data [facility] Provider, Abstract 12/12/2024 External Device Data [facility] Provider, Abstract 12/04/2024 External Device Data [facility]STRACTION Provider, Abstract from Last 3 Months Family History Medical [...] on file 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 [address] [place] [address] Health Maintenance Due Date Last Done Comments DTAP/TDAP/TD VACCINES (1 - Tdap) 08/15/2002 HEPATITIS B VACCINES (1 of 3 - 19+ 3-dose series) 03/2002 Preventative Visit- Commercial 02/15/2024 INFLUENZA VACCINE (#1) 2024 11/23/2021 Abdominal Aortic Aneurysm (AAA) Screening Completed 07/14/2024 HPV VACCINES (No Doses Required) Completed Procedures Procedure Name Priority Date/Time Associated Diagnosis Comments US ABDOMEN COMPLETE Routine 07/14/2024 9:22 AM CDT from Last 3 Months or Most Recently Relevant to Health Maintenance Results * US ABDOMEN COMPLETE (07/14/2024 9:22 AM CDT) Anatomical Region Laterality Modality Abdomen Ultrasound us Darek Purdy MD US ORDERABLES Final Result from Last 3 Months or Most Recently Relevant to Health Maintenance Insurance [facility] ONLY Care Teams Child And Family Therapist Relationship Specialty Start Date End Date Apryl Beckford MD [address] [place] [address] PCP - General Internal Medicine 06/25/24
[2025-01-23 18:07] LABS: Vitamin B12 856.0 pg/mL (239-931)
== END 2025-01-23 12:54 | disposition home or self-care (01) ==
LOC: ANHLAB 12:54
PROVIDERS: PCP Internal Medicine; Visit Provider Internal Medicine Hematology & Oncology
DX: D64.9 Anemia, unspecified (principal)
CPT/HCPCS: 36415; 82607; 82746; 85027